=== PATIENT | female | born 1995 | race African-American/Black ===

== ENCOUNTER 2018-01-21 17:10 | Emergency (ER) | payer SELFPAY ==
[~2018-01-21] VITALS: Ht 170.2 cm; Wt 118.9 kg
[~2018-01-21 17:10] MED LIST: BENADRYL1 CRE EX; CIPRO HC AS; CIPRODEX1 ML AS; CIPRODEX1 ML AU; CIPROFLOXACN500 MG PO; CORTISPORIN OTI10 ML AU; LORTAB5 PO; NAPROSYN500 MG PO; NO HOME MEDS; ZITHROMAX250 MG PO; ZOFRAN ODT4 MG PO
[2018-01-21 18:04] LABS: URINE BILIRUBIN - DIPSTICK NEGATIVE (NEGATIVE); URINE BLOOD DIPSTICK NEGATIVE (NEGATIVE); URINE COLOR YELLOW; URINE GLUCOSE - DIPSTICK NEGATIVE (NEGATIVE); URINE KETONE NEGATIVE (NEGATIVE); URINE LEUK ESTERASE NEGATIVE (NEGATIVE); URINE NITRITE - DIPSTICK NEGATIVE (Negative); URINE PH 7.5 (4.5-8.0); URINE PROTEIN - DIPSTICK NEGATIVE (NEG-TRACE); URINE SPECIFIC GRAVITY 1.025; URINE UROBILINOGEN - DIPSTICK 0.2 E.U./dL (0.2)
[2018-01-21 18:06] LABS: URINE CLARITY CLEAR
[2018-01-21 18:17] LABS: ANION GAP 18 (6-22 (CALC)); BUN 10 mg/dL (7-17); BUN/CREATININE RATIO 13 (12-20 (CALC)); CARBON DIOXIDE 27 mmol/l (22-30); CHLORIDE 103 mmol/l (95-108); CREATININE 0.8 mg/dL (0.5-1.0); GFR > 60 ML/MIN (>=60 (CALC)); GFR FOR AFR.AMER. > 60 ML/MIN (>=60 (CALC)); MAGNESIUM 1.7 mg/dL (1.6-2.3); POTASSIUM 4.4 mmol/l (3.5-5.1); SODIUM 144 mmol/l (137-146)
[2018-01-21 18:28] VITALS: BP 149/90
== END 2018-01-21 18:28 | disposition home or self-care (01) | DRG 392 ==
LOC: ED 17:10
PROVIDERS: Family Medicine
DX: A08.4 Viral intestinal infection, unspecified (principal)

== ENCOUNTER 2018-05-20 09:59 | Emergency (ER) | payer SELFPAY ==
[~2018-05-20] VITALS: Ht 170.2 cm; Wt 90.0 kg
[2018-05-20 10:26] VITALS: BP 111/47
== END 2018-05-20 10:32 | disposition home or self-care (01) | DRG 204 ==
LOC: ED 09:59
DX: R05 Cough (principal)

== ENCOUNTER 2019-03-07 18:41 | Emergency (ER) | payer SELFPAY ==
[~2019-03-07] VITALS: Ht 170.2 cm; Wt 105.0 kg
[2019-03-07] MEDS ORDERED: TORADOL PO (18:53)
[2019-03-07] MEDS ORDERED: CORTISPORIN OTI10 M2 AU (18:53)
[2019-03-07] MEDS ORDERED: ZITHROMAX250 MG PO (18:53)
[2019-03-07 19:20] VITALS: BP 112/66
== END 2019-03-07 19:20 | disposition home or self-care (01) | DRG 153 ==
LOC: ED 18:41
DX: H66.91 Otitis media, unspecified, right ear (principal); H92.01 Otalgia, right ear; H60.91 Unspecified otitis externa, right ear; R50.9 Fever, unspecified